=== PATIENT | female | born 1990 | race Caucasian/White ===

== ENCOUNTER → 2022-11-19 | Outpatient (CLI) | payer MEDICAID ==
[2022-11-19 20:36] LABS: Immunoglobulin E <5.00 IU/mL (0.00-114.00)
[2022-11-20 06:14] LABS: EBV - VCA IgM 17.4 U/mL (<36.0)
== END | disposition home or self-care (01) ==
LOC: LABWHC1 12:59
PROVIDERS: ATTEND Otolaryngology
DX: N39.0 Urinary tract infection, site not specified (principal)
CPT/HCPCS: 36415; 82784; 82785; 86665